=== PATIENT | male | born 1960 | race African-American/Black ===

== ENCOUNTER 2017-09-02 20:10 | Emergency (ER) | payer BC ==
[~2017-09-02] VITALS: Ht 177.8 cm; Wt 70.3 kg
[2017-09-02] MEDS ORDERED: Lidocaine 1% MPF 10mg/ml 5ml INJ ONE (21:15)
[2017-09-02 21:30] VITALS: BP 141/53
[2017-09-02] MEDS ORDERED: BACITRACIN ZIN1 EACH TOPIC (21:33)
--- NOTE | 2017-09-02 21:41 | Emergency Room Report ---
History of Present Illness General Chief Complaint: Laceration Source: Patient Present Illness HPI Patient is a 56-year-old male who presented after increased pain to his right small finger. The patient was cutting his finger while washing dishes. Patient is right-hand dominant. He is a retired retail loss prevention specialist. Patient denied any foreign body sensation. He reports having numbness to the distal portion of the finger. There is small amount pulsatile bleeding noted Allergies: Coded Allergies: No Known Allergies (Unverified , 09/02/17) Patient History Past Medical History: see triage record Reviewed Nursing Documentation: PMH: Agreed, PSxH: Agreed Review of Systems All Other Systems: negative except mentioned in HPI Physical Exam Vital Signs Date Time Temp Pulse Resp B/P (MAP) Pulse Ox O2 Delivery O2 Flow Rate FiO2 09/02/17 20:24 97.7 56 18 141/53 99 Room Air 97.7 General Appearance: well appearing, no apparent distress, alert, GCS 15 Head: normocephalic, atraumatic ENT: hearing grossly normal, normal voice Neck: full range of motion, supple Respiratory: no respiratory distress, speaking full sentences Musculoskeletal: normal inspection, no calf tenderness Neurologic: normal inspection, alert, oriented x3, responsive, normal gait, other - numbness to lateral right small finger Psychiatric: mood/affect normal Skin: no rash, laceration - 1 cm Procedures Laceration/Wound Repair Laceration/Wound Repair : Consent: Verbal Wound Location: upper extremity Wound's Depth, Shape: superficial Wound Length (cm): 1 Wound Explored: clean Irrigated w/ Saline (ccs): 20 Betadine Prep?: Yes Anesthesia: 1% Lidocaine Volume Anesthetic (ccs): 2 Wound Debrided: minimal Wound Repaired With: sutures Suture Size/Type: 5:0 Number of Sutures: 3 Patient Tolerated: Well Complications: None Medical Decision Making Diagnostic Impression: Primary Impression: Laceration ER Course Patient presented for laceration. Differential diagnoses included foreign body , nerve injury, arterial injury among others. Patient has a benign exam and does not appear to require any further imaging or laboratory testing at this time. Wound is irrigated and sutured. Other small amount. Bleeding and distal numbness consistent with nerve and arterial injury. Patient was advised to followup with hand surgeon. The patient was to have sutures removed in 10 days to 2 weeks Last Vital Signs Date Time Temp Pulse Resp B/P (MAP) Pulse Ox O2 Delivery O2 Flow Rate FiO2 09/02/17 20:24 97.7 56 18 141/53 99 Room Air 97.7 Status: improved Disposition: HOME, SELF-CARE Condition: Stable Scripts Bacitracin Zinc* (BACITRACIN ZINC*) 1 Each Packet 1 APPLIC TOPIC THREE TIMES A DAY, #30 PACKET Prov: Murali Alejo 09/02/17 Referrals: NON PHYSICIAN (PCP) JEISON HENRY M.D. Patient Instructions: Laceration Care, Adult Additional Instructions: Follow up with hand surgeon for reevaluation in the next 2 days call for appointment Murali Alejo Sep 02, 2017 21:41
[2017-09-02] MEDS ORDERED: Bacitracin Oint UD TOPIC ONE (21:45)
[2017-09-02 22:01] VITALS: BP 141/53
== END 2017-09-02 22:01 | disposition home or self-care (01) ==
LOC: EMR 21:00
DX: S61.216A Laceration without foreign body of right little finger without damage to nail, initial encounter (principal); W25.XXXA Contact with sharp glass, initial encounter; Y93.G1 Activity, food preparation and clean up; Y92.9 Unspecified place or not applicable
CPT/HCPCS: 99283